=== PATIENT | female | born 1990 | race Caucasian/White ===

== ENCOUNTER 2016-07-17 13:58 | Inpatient (IN) ==
[2016-07-17] MEDS ORDERED: ZOFRAN IV PRN (14:03)
[2016-07-17] MEDS ORDERED: TYLENOL PO PRN (14:03)
[2016-07-17] MEDS ORDERED: AMPICILLIN 2 GM/NS 100 ML IV ONE (14:03)
[2016-07-17] MEDS ORDERED: PEPCID PO ONE (14:03)
[2016-07-17] MEDS ORDERED: REGLAN PO ONE (14:03)
[2016-07-17] MEDS ORDERED: PEPCID PO PRN (14:03)
[2016-07-17] MEDS ORDERED: PEPCID IV PRN (14:03)
[2016-07-17] MEDS ORDERED: STADOL IV PRN (14:03)
[2016-07-17] MEDS ORDERED: LR 500 ML IV ONE (14:03)
[2016-07-17] MEDS ORDERED: KEFZOL 1 GM/D5W 50 ML IV PRN (14:03)
[2016-07-17] MEDS ORDERED: PITOCIN 30 UNITS/LR 500 ML IV SCH (14:15)
[2016-07-17] MEDS ORDERED: SODIUM CHLORIDE 0.9% INJ SCH (14:15)
[2016-07-17] MEDS ORDERED: PITOCIN 20 UNITS/LR 1,000 ML ONE (14:31)
[2016-07-17] MEDS: LR 1,000 ML IV SCH ×2 (14:45→15:17)
[2016-07-17 15:00] LABS: MANUAL DIFF NEEDED? NO
[2016-07-17 15:02] LABS: BASO% 0.2 % (0.0-0.8); EOS# 0.09 X1000 (0.0-0.7); EOS% 0.7 % (0.0-10.0); HEMATOCRIT 32.7 % (37.0-47.0); HEMOGLOBIN 11.3 g/dL (12.0-16.0); IMM GRAN# 0.06 X1000 (0.0-0.04); IMM GRAN% 0.5 % (0.0-0.5); LYMPH# 1.73 X1000 (1.2-3.4); LYMPH% 13.9 % (20.5-51.1); MCH 31.8 PG (27-31); MCHC 34.6 g/dL (33-37); MCV 92.1 FL (81-99); MONO# 0.88 X1000 (0.11-0.59); MONO% 7.1 % (1.7-9.3); MPV 11.7 FL (7.4-10.4); NEUT% 77.6 % (42.2-75.2); PLT 196 X1000 (130-400); RBC 3.55 XMIL (4.2-5.4)
[2016-07-17] MEDS ORDERED: MARCAINE 0.25% INJ ONE (15:29)
[2016-07-17] MEDS ORDERED: MARCAINE 0.25% PF ONE (15:31)
[2016-07-17] MEDS ORDERED: FENTANYL-BUPIV-NS 2 MCG-0.1% 200 ML ONE (15:32)
[2016-07-17] MEDS ORDERED: MARCAINE 0.25% PF INJ ONE (15:45)
[2016-07-17] MEDS ORDERED: FENTANYL-BUPIV-NS 2 MCG-0.1% 200 ML EPIDURAL ONE (16:00)
[2016-07-17] MEDS ORDERED: AMPICILLIN 1 GM/NS 50 ML IV SCH (18:06)
[2016-07-17] MEDS ORDERED: XYLOCAINE-MPF 1% ONE (18:21)
[2016-07-17] MEDS ORDERED: MINERAL OIL ONE (18:38)
[2016-07-17] MEDS ORDERED: CYTOTEC PO PRN (19:10)
[2016-07-17] MEDS ORDERED: MINERAL OIL MISC PRN (19:10)
[2016-07-17] MEDS ORDERED: NORCO-5 PO PRN (19:10)
[2016-07-17] MEDS ORDERED: AMBIEN PO PRN (19:10)
[2016-07-17] MEDS ORDERED: BENADRYL IV PRN (19:10)
[2016-07-17] MEDS ORDERED: NORCO-10 PO PRN (19:10)
[2016-07-17] MEDS ORDERED: M-M-R II VACCINE SUBQ ONE (19:10)
[2016-07-17] MEDS ORDERED: PERCOCET-10 PO PRN (19:10)
[2016-07-17] MEDS ORDERED: PITOCIN 30 UNITS/LR 500 ML IV ONE (19:10)
[2016-07-17] MEDS ORDERED: PERI MEDS (DERMOPLAST/NUPERCAINAL/TUCKS) MISC PRN (19:10)
[2016-07-17] MEDS ORDERED: PERCOCET-5 PO PRN (19:10)
[2016-07-17] MEDS ORDERED: BOOSTRIX VACCINE IM ONE (19:10)
[2016-07-17] MEDS ORDERED: HYDROXYZINE IM PRN (19:10)
[2016-07-17] MEDS ORDERED: BENADRYL PO PRN (19:10)
[2016-07-17] MEDS ORDERED: XYLOCAINE-MPF 1% INJ PRN (19:10)
[2016-07-17] MEDS ORDERED: PITOCIN IM PRN (19:10)
[2016-07-17] MEDS ORDERED: HYDROXYZINE PO PRN (19:10)
[2016-07-17] MEDS ORDERED: PITOCIN 20 UNITS/LR 1,000 ML IV SCH (19:15)
--- NOTE | 2016-07-17 19:44 | OPERATIVE NOTE ---
PROCEDURE DATE: 07/17/2016 DELIVERING PHYSICIAN: Edwar Keenan MD TYPE OF DELIVERY: Vaginal delivery with outlet vacuum forceps. ANESTHESIA: Epidural. FINDINGS: At 18:45, a 6 pound 14 ounce male infant was delivered in occiput anterior presentation. Apgars were 9 at 1 minute and 10 at 5 minutes. SUMMARY: Bing Stark is a 26-year-old, 2, para 1-0-0-1, who is at 37-1/2 weeks gestation. Her blood type is A negative. Rubella immune. Hepatitis B surface antigen, HIV are negative. Group B strep is positive. The patient saw Dr. Pak this afternoon and was found to be 4-5 cm dilated. There was some question about rupture of membranes for greater than 24 hours. She was therefore admitted to the hospital and begun on IV Pitocin and group B strep antibiotics were begun. She received an epidural for labor pain management. On my 1st examination, a large bag of water was broken with a copious amount of fluid. The cord partially prolapsed, but could be replaced with position changing. She progressed through labor rapidly with no signs of stress or dystocia. She became complete and began pushing. With pushing, she did have some decelerations. She pushed for a short period of time and was . Position was made due to the decelerations to expedite delivery. After discussing options with the patient, she was placed in dorsal lithotomy position. The perineum was prepped draped in usual fashion. A kiwi forceps was applied at a +1 station. With the patient pushing and gentle traction, the 's head was delivered. The nuchal cord was reduced. The shoulders and body delivered without complications. Cord was clamped and cut. The oropharynx was bulb suctioned. The was handed to the nurses for further care and evaluation. Cord blood was obtained. Placenta was spontaneously delivered and was intact. There were midline tears, along with a left labial laceration which were repaired with 2-0 Vicryl and 3-0 chromic suture. Blood loss approximately 200 mL. No complications. The patient remained in the LDR recovering without difficulty.
[2016-07-17] MEDS ORDERED: COLACE PO PRN (20:06)
[2016-07-17] MEDS: PERICOLACE PO SCH (22:04)
[2016-07-17] MEDS: MOTRIN PO PRN (22:05)
[2016-07-18] MEDS: MOTRIN PO PRN ×2 (07:05→16:54)
[2016-07-18 07:50] LABS: HEMATOCRIT 31.4 % (37.0-47.0); HEMOGLOBIN 10.6 g/dL (12.0-16.0); MCH 31.9 PG (27-31); MCHC 33.8 g/dL (33-37); MCV 94.6 FL (81-99); MPV 11.6 FL (7.4-10.4); RBC 3.32 XMIL (4.2-5.4)
[2016-07-18] MEDS ORDERED: PRECARE PO SCH (09:00)
[2016-07-18] MEDS: PERICOLACE PO SCH (21:35)
[2016-07-19] MEDS: MOTRIN PO PRN (00:14)
[2016-07-19 10:18] VITALS: BP 116/60
--- NOTE | 2016-07-19 12:01 | DISCHARGE SUMMARY ---
ADMISSION DATE: 07/17/2016 DISCHARGE DATE: 07/19/2016 ADMITTING DIAGNOSIS: at 37-1/2, rupture of membranes. HOSPITAL COURSE: She was admitted, delivered, has done well afterwards. Desires discharge now without complaints PHYSICAL EXAMINATION: Neck: Supple. Lungs: Clear. Heart: Regular sinus rhythm. Abdomen: Soft, distended. Uterus is firm nontender. Extremities: With 2+ lower extremity edema. LABORATORY DATA: Hemoglobin is 10.6. DISPOSITION: She is discharged home in stable condition. DIET: Regular diet. MEDICATIONS : Vitamins with iron, stool softeners, [place] 5, and Motrin. DISCHARGE INSTRUCTIONS: instructions have been given and she is to follow up in [address] Keenan.
== END 2016-07-19 11:10 | disposition home or self-care (01) | DRG 775 ==
LOC: P.LD 13:58
PROVIDERS: ADMIT Obstetrics & Gynecology; ATTEND Obstetrics & Gynecology
PROC: 10D07Z6 Extraction of Products of Conception, Vacuum, Via Natural or Artificial Opening (ICD-10-PCS; principal; 2016-07-17)
PROC: 0KQM0ZZ Repair Perineum Muscle, Open Approach (ICD-10-PCS; 2016-07-17)
PROC: 3E0234Z Introduction of Serum, Toxoid and Vaccine into Muscle, Percutaneous Approach (ICD-10-PCS; 2016-07-18)
DX: O69.1XX0 Labor and delivery complicated by cord around neck, with compression, not applicable or unspecified (principal); O26.893 Other specified pregnancy related conditions, third trimester; Z67.11 Type A blood, Rh negative; O70.1 Second degree perineal laceration during delivery; O76 Abnormality in fetal heart rate and rhythm complicating labor and delivery; O99.824 Streptococcus B carrier state complicating childbirth; Z37.0 Single live birth; Z3A.37 37 weeks gestation of pregnancy
CPT/HCPCS: 59025; 85025; 85027; 85461; 86592; 86900; 86901; J0290; J2590; J2790; J7120; S0020